=== PATIENT | male | born 1965 | race Caucasian/White ===

== ENCOUNTER 2017-03-26 09:00 | Inpatient (IN) | payer OTHER ==
[~2017-03-26] VITALS: Ht 180.3 cm; Wt 96.1 kg
--- NOTE | ~2017-03-26 | OR ---
PATIENT'S NAME: ESTHER ARGUELLO [facility] AGE: 52 Y [address] ROOM: [place] [address] LOCATION: [facility] ADMIT DATE: 04/10/2017 OR/Procedure Report DISCHARGE DATE: FAMILY PHYSICIAN: Enzo Ayers MD ATTENDING PHYSICIAN: ENZO BROWN SURGEON: Enzo Brown MD HEALTHCARE ANALYST: Harjinder Jacobs PA-C, and Shon Hurtado ORDER TRACER/TRANSPORTATION SPECIALIST. DATE OF PROCEDURE: 04/10/2017 PRE-OP DIAGNOSIS: Primary osteoarthritis, right hip. POST-OP DIAGNOSIS: Primary osteoarthritis, right hip. OPERATION: Right total hip arthroplasty using Capsearch robotic arm guidance and computer navigation. ANESTHESIA: Spinal anesthesia plus subcutaneous and periarticular local anesthesia (ropivacaine with epinephrine). ESTIMATED BLOOD LOSS: Approximately 250 mL. DRAIN: None. SPECIMEN: None. COMPLICATIONS: None. IMPLANTS: 1. Stewardson Trident Tritanium size 60 mm hemispherical uncemented acetabular shell with 1 dome hole cover and no screws. 2. Sirisha X3 neutral acetabular polyethylene liner with 36 mm inner diameter. 3. Stewardson Accolade II size 7, high offset, uncemented femoral component. 4. 36 mm diameter Biolox femoral head with +0 mm neck length. INDICATION FOR SURGERY: Esther Arguello is a 52-year-old male who presents with advanced right hip primary osteoarthritis and associated severely compromised activities of daily living. The patient has decided to proceed with hip replacement after having been thoroughly counseled regarding the associated risks, benefits, and limitations. We have specifically reviewed the risks and implications of infection, deep venous thrombosis, pulmonary embolism, mortality, neurovascular complications, blood transfusion (and associated potential for disease transmission or transfusion reaction), stiffness, instability, leg length discrepancy, mechanical deterioration of the PATIENT'S NAME: ESTHER ARGUELLO [facility] AGE: 52 Y [address] ROOM: [place] [id number] LOCATION: [facility] ADMIT DATE: 04/10/2017 OR/Procedure Report DISCHARGE DATE: FAMILY PHYSICIAN: Enzo Ayers MD ATTENDING PHYSICIAN: ENZO BROWN components (due to wear and to loosening), and the potential need for revision. DESCRIPTION OF PROCEDURE: The patient was positioned in a lateral decubitus position with the right side up after administration of anesthesia and prophylactic antibiotics. An axillary roll was placed and the non-operative leg was well padded. The pelvis was locked perpendicularly to the floor on a pegboard. The right hip and entire operative extremity were prepped and draped with vigilant sterile technique. The patient's name as well as the intended operative side and procedure were confirmed with a verbal time-out involving myself, the circulating nurse, the scrub nurse, and the anesthesiologist. The right hip was approached through a standard posterolateral incision. The fascia gilbert and the gluteus shilpa fascia were sharply divided in line with the overlying skin incision. The sciatic nerve was identified and was vigilantly protected throughout the entire case. The short external rotators and posterior capsule were divided from their respective femoral insertions and tagged with four #1 Ethibond sutures for later repair. The hip was posteriorly dislocated with combined flexion, adduction, and internal rotation. The femoral neck osteotomy was performed with an oscillating saw. Inspection of the femoral head demonstrated a large osteophyte around its circumference. There was global full-thickness loss of articular cartilage. There was no femoral head collapse. Circumferential acetabular exposure was obtained. Inspection of the acetabulum demonstrated a large medial osteophyte. There was extensive degenerative tearing of the remnant of the acetabular labrum. There was no dysplasia. There was full- thickness loss of articular cartilage throughout the weightbearing surface. There was a large effusion consisting of benign-appearing translucent synovial fluid. There was no loose body. Remnants of the acetabular labrum were sharply thoroughly excised. The acetabulum was sequentially progressively reamed up to 60 mm. Reaming was performed with a Capsearch robotic arm guidance system. The final acetabular shell was impacted into position in 20 degrees of anteversion and 45 degrees of inclination. An excellent press-fit was obtained. No supplemental dome screw fixation was necessary. It should be noted that the acetabular component was inserted with Capsearch robotic arm guidance system. A neutral trial liner was inserted. Attention was next focused upon femoral preparation. The femoral canal initiator was utilized. No reaming was performed (except for with the canal finder). The femoral canal was subsequently sequentially progressively PATIENT'S NAME: ESTHER ARGUELLO [facility] AGE: 52 Y [address] ROOM: [place] [id number] LOCATION: [facility] ADMIT DATE: 04/10/2017 OR/Procedure Report DISCHARGE DATE: FAMILY PHYSICIAN: Enzo Ayers MD ATTENDING PHYSICIAN: ENZO BROWN broached up to a size 7. The size 7 broach obtained excellent axial and rotational stability. Trial reductions with the above specified construct yielded acceptable stability and acceptable reproduction of leg length and offset. All trial components were removed. The final acetabular liner was inserted with excellent circumferential visualization of its locking mechanism to assure adequate deployment. The final femoral component was impacted into position. The femoral component achieved excellent axial and rotational stability. The trunnion of the femoral component was vigilantly protected prior to placement of the femoral head. The trunnion of the femoral component was thoroughly cleaned and dried prior to placement of the femoral head. The incision was thoroughly irrigated with bacteriostatic pulsatile saline lavage multiple times throughout the case. The entire joint space was thoroughly inspected and thoroughly irrigated to assure that there was no residual debris of any sort. A final reduction was then performed. After final reduction, the hip could be firmly externally rotated in full extension and zero degrees of abduction without anterior subluxation. In neutral rotation and zero degrees of abduction, the hip could be firmly flexed to 120 degrees without instability. At 90 degrees of flexion and zero degrees abduction, the hip could be internally rotated to 65 degrees before there was any hint of posterior subluxation. The posterior capsule and short external rotators were repaired through two drill holes in the posterior aspect of the greater trochanter. The fascia gilbert and gluteus shilpa fascia were closed with multiple simple and [id number] interrupted # 1 Ethibond and #1 Vicryl sutures. Subcutaneous tissues were thoroughly re-irrigated with bacteriostatic pulsatile saline lavage. Subcutaneous tissues were re-approximated with simple buried interrupted #0 Vicryl sutures. The skin was closed with superficial buried interrupted 2-0 Vicryl sutures followed by a running subcuticular 3-0 Monocryl suture, followed by Octylseal, followed by Steri-Strips with benzoin, followed by an occlusive Mepilex dressing. There were no intra-operative complications. It should be noted that an accessory oblique incision was made over the anterior iliac crest through which 3 partially threaded Steinmann pins were placed into the anterior iliac wing between the inner and outer tables of the iliac wing. These 3 pins were removed intact at the conclusion of the case prior to irrigation of the wound and closure with simple deep interrupted 0 Vicryl sutures followed by superficial buried interrupted 2-0 Vicryl sutures PATIENT'S NAME: ESTHER ARGUELLO [facility] AGE: 52 Y [address] ROOM: [address] [address] LOCATION: [facility] ADMIT DATE: 04/10/2017 OR/Procedure Report DISCHARGE DATE: FAMILY PHYSICIAN: Enzo Ayers MD ATTENDING PHYSICIAN: ENZO BROWN and a running subcuticular 3-0 Monocryl suture, followed by Dermabond, followed by Steri-Strips with benzoin. The anterior dressing consisted of an occlusive Mepilex dressing. It should be noted that the physician's assistant principal played an active, integral role throughout this entire operation. By providing expert retraction, they greatly facilitated and expedited safe and effective exposure of the proximal femur and acetabulum for preparation and implantation of the components. They were also actively involved in the patient's positioning, prepping and draping, as well as wound closure. MD CHELSEA MUNOZ/konrad /[id number] d: 04/11/17 0057 t: 04/18/17 1744, OPERATIVE SUMMARY
[~2017-03-26 09:00] MED LIST: GLUCOPHAGE1000 MG PO; LIPITOR10 MG PO; PRINIVIL (ZESTR20 MG PO
--- NOTE | 2017-04-10 15:37 | NUR ---
Patient and attended joint preop class. Report they live in [place] in home. Has 3 steps to get in with railing on left wide. Has walk in shower. Has a walker. Denies needs or concerns at this time. Encouraged use of IS. Has foot pumps in place bilat. Will follow and assist as needs identified.
--- NOTE | 2017-04-10 17:18 | NUR ---
Significant Event: Pt arrived from PACU at 1230, VSS, last hourly at 1900, Lisinopril was held as BP's are 115-120, but pt was on Dmitri gtt and ephedrin in OR-Linda Jacob informed a& agreed to hold today, Pt rates pain 1, routine Tylenol at 1700, Dialudid 2 mg at 1130 & 1415, Pt had 1412 in IV/PO no void yet, denies discomfort, BS was 192 and Metforming given wiht Dinner at 1715 Follow up: Void and pain
--- NOTE | 2017-04-11 05:13 | NUR ---
Significant Event: A&O X3. Vital signs stable. RA. Mepilex dressing X2 sites are CDI. CSM WNL. Ambulates to bathroom with SBA, gait belt and walker. Dilaudid 2 mg given last at 0510, given for anticipated pain, pt has minimal pain. Scheduled tylenol. Voiding without difficulty. Follow up: Possible discharge home today.
--- NOTE | 2017-04-11 09:50 | NUR ---
Introduced self/role to patient. He lives in [place] with his Marija. He denied any needs or barriers to going home. No additional DME needed. Wrote my name on his marker board.
[2017-04-11] MEDS ORDERED: TYLENOL EXTRA500 MG PO (10:44)
[2017-04-11] MEDS ORDERED: NEURONTIN300 MG PO (10:46)
[2017-04-11] MEDS ORDERED: MIRALAX17 GM PO (10:47)
[2017-04-11] MEDS ORDERED: DILAUDID 2MG(HYD2 MG PO (10:48)
[2017-04-11] MEDS ORDERED: XARELTO10 MG PO (10:48)
[2017-04-11] MEDS ORDERED: VALIUM5 MG PO (10:49)
== END 2017-04-11 13:50 | disposition disaster alternative care site (69) | DRG 470 ==
LOC: G3N 04-10 06:14
PROVIDERS: ADMIT Orthopaedic Surgery
PROC: 0SR90JA Replacement of Right Hip Joint with Synthetic Substitute, Uncemented, Open Approach (ICD-10-PCS; principal; 2017-04-10)
DX: M16.11 Unilateral primary osteoarthritis, right hip (principal); I10 Essential (primary) hypertension; E11.9 Type 2 diabetes mellitus without complications; Z79.84 Long term (current) use of oral hypoglycemic drugs
CPT/HCPCS: C1713; C1776; J0690; J1885; J2001; J2795; J7030; J7120

== ENCOUNTER → 2017-03-29 | Outpatient (CLI) | payer OTHER ==
[~2017-03-29] MED LIST changes: +DILAUDID 2MG(HYD2 MG PO; +MIRALAX17 GM PO; +NEURONTIN300 MG PO; +TYLENOL EXTRA500 MG PO; +VALIUM5 MG PO; +XARELTO10 MG PO
== END | disposition disaster alternative care site (69) ==
LOC: GNJRC 10:27
DX: Z01.818 Encounter for other preprocedural examination (principal); M16.11 Unilateral primary osteoarthritis, right hip; M25.551 Pain in right hip